=== PATIENT | male | born 1955 | race Caucasian/White ===

== ENCOUNTER 2021-04-05 22:26 | Emergency (ER) | payer SELFPAY ==
[2021-04-05] MEDS ORDERED: Boostrix 0.5 ML (Tdap) VIAL ONE (23:23)
[2021-04-06] MEDS ORDERED: Lidocaine 1% w/Epinephrine 1:100K 20 ML VIAL ONE
[2021-04-06] MEDS ORDERED: HYDROcodone/Acetaminophen 5/325 mg Tablet ONE (01:07)
== END 2021-04-06 02:16 | disposition home or self-care (01) ==
LOC: ERS 22:26
DX: S01.01XA Laceration without foreign body of scalp, initial encounter (principal); I10 Essential (primary) hypertension; E78.00 Pure hypercholesterolemia, unspecified; W19.XXXA Unspecified fall, initial encounter
CPT/HCPCS: 12004; 70450; 90471; 90715